=== PATIENT | male | born 1935 | race Caucasian/White ===

== ENCOUNTER → 2021-01-26 14:17 | Outpatient (BNVA) | payer MEDICARE, SELFPAY | PROVIDERS: PCP Internal Medicine; Visit Provider Surgery Vascular Surgery | DX: I73.9 Peripheral vascular disease, unspecified (principal); I83.11 Varicose veins of right lower extremity with inflammation | CPT/HCPCS: 99212 ==

== ENCOUNTER 2021-02-15 12:40 | Outpatient (REF) | payer MEDICARE, SELFPAY ==
--- NOTE | ~2021-02-15 | US_ITS ---
EXAMINATION: BILATERAL LOWER EXTREMITY VENOUS ULTRASOUND (Reflux Exam) CLINICAL INDICATION: This is an 85-year-old male with venous insufficiency and varicose veins. Venous reflux. COMPARISON: None. TECHNIQUE: Color flow triplex imaging and compression Doppler was performed to evaluate both the deep and the superficial systems bilaterally. To evaluate the superficial system, the examination was performed in the upright position. Color-flow Doppler ultrasound and compression ultrasound were utilized. In addition, maneuvers were utilized to demonstrate reflux. FINDINGS: 1. DEEP VENOUS ULTRASOUND OF THE RIGHT LOWER EXTREMITY: Common Femoral Vein: Compressible, normal respiratory variation and augmented flow. Femoral vein: Compressible, normal color flow and augmentation. Popliteal Vein: Compressible, normal augmentation. Deep Reflux: There is no evidence of reflux in the deep system in either the common femoral vein or the popliteal vein. . There is no evidence of a Navarrete's cyst. 2. SUPERFICIAL ULTRASOUND WITH DOPPLER OF RIGHT LOWER EXTREMITY GREAT SAPHENOUS VEIN: Saphenofemoral junction: 0.5 cm. There is no reflux. Mid thigh: Not seen. Above knee: 0.2 cm. There is no reflux. Below knee: 0.2 cm. The reflux time is 3300 ms. Mid calf: 0.2 cm. There is no reflux. Ankle: 0.3 cm GSV REFLUX: There is only isolated reflux at the knee. There is no reflux at the junction. The patient is status post reported VenaSeal in the right great saphenous vein. There appears to be occlusion 1.3 cm from the saphenofemoral junction with reconstitution below this area. DUPLICATED GREAT SAPHENOUS VEIN: There is a duplicated medial great saphenous vein measuring 0.2 cm without reflux. SMALL SAPHENOUS VEIN: Upper: 0.2 cm Lower: 0.1 cm SSV REFLUX: No evidence of reflux. VEIN OF GIACOMINI: None Imaged. PERFORATORS: There are 0.3 and 0.4 cm, respectively, calf perforators without reflux. VARICOSITIES: There are multiple varicosities seen within the calf with reflux. In the proximal calf measuring 0.3 cm with the reflux time of 2804 ms. In the proximal calf measuring 0.2 cm with the reflux time 1604 ms. In the distal calf measures 0.3 cm with the reflux time of greater than 3 seconds. 3. DEEP VENOUS ULTRASOUND OF THE LEFT LOWER EXTREMITY: Common Femoral Vein: Compressible, normal respiratory variation and augmented flow. Femoral vein: Compressible, normal color flow and augmentation. Popliteal Vein: Compressible, normal augmentation. Deep Reflux: There is no evidence of reflux in the deep system in either the common femoral vein or the popliteal vein. There is no evidence of a Navarrete's cyst. 4. SUPERFICIAL ULTRASOUND WITH DOPPLER OF LEFT LOWER EXTREMITY GREAT SAPHENOUS VEIN: Saphenofemoral junction: 1.0 cm. The reflux time is 560 ms. Mid thigh: 1.0 cm. The reflux time is 1732 ms. Above knee: 0.8 cm. The reflux time is 1060 ms. Below knee: 0.7 cm. The reflux time is 3156 ms. Mid calf: 0.4 cm. The reflux time is 1736 ms. Ankle: 0.3 cm. The reflux time is 2196 ms. GSV REFLUX: There is reflux at the junction and extending throughout the great saphenous vein. DUPLICATED GREAT SAPHENOUS VEIN: There is a duplicated lateral great saphenous vein measures 0.3 cm without reflux. SMALL SAPHENOUS VEIN: Upper: 0.2 cm Lower: 0.2 cm SSV REFLUX: No evidence of reflux. VEIN OF GIACOMINI: None Imaged. PERFORATORS: None Imaged VARICOSITIES: There are 0.5 cm varicose veins in the proximal calf with 1412 ms of reflux. US/US venous duplex LE BI IMPRESSION: 1. The right great saphenous vein appears patent at the saphenofemoral junction and proximal thigh. The mid thigh is not seen. The patient is reportedly status post treatment. The great saphenous vein is seen below this area extending down to the ankle. There is isolated reflux at the knee of greater than 3 seconds. 2. There is a patent duplicated medial right great saphenous vein measuring 0.2 cm without reflux. 3. There is a patent right small saphenous vein without reflux. 4. There are varicose veins measuring 0.3 cm and less in the right calf with reflux as described. 5. There is a patent left great saphenous vein with reflux at the saphenofemoral junction extending through the left leg. 6. There is a patent dedicated left lateral great saphenous vein without reflux. 7. There is a patent left small saphenous vein without reflux. 8. There are varicose veins in the calf measuring 0.5 cm with reflux.
== END 2021-02-15 12:41 | disposition home or self-care (01) ==
LOC: HO.US 12:40
PROVIDERS: PCP Internal Medicine; Visit Provider Surgery Vascular Surgery
DX: I83.11 Varicose veins of right lower extremity with inflammation (principal)
CPT/HCPCS: 93970

== ENCOUNTER → 2021-02-23 13:53 | Outpatient (BNVA) | payer MEDICARE, SELFPAY | PROVIDERS: PCP Internal Medicine; Visit Provider Surgery Vascular Surgery | DX: I83.12 Varicose veins of left lower extremity with inflammation (principal) | CPT/HCPCS: 99212 ==